=== PATIENT | male | born 1970 | race Caucasian/White ===

== ENCOUNTER 2024-07-08 10:18 | Emergency (ER) | payer BC, OTHER ==
[~2024-07-08] VITALS: Ht 177.8 cm; Wt 77.0 kg
[2024-07-08 10:20] VITALS: O2SAT 98
[2024-07-08 11:27] LABS: BASOPHILS % 0.8 % (0.0-2.0); EOSINOPHILS % 2.3 % (0.0-5.0); HEMATOCRIT. 45.2 % (42.0-52.0); HEMOGLOBIN. 15.5 g/dL (14.0-18.0); LYMPHOCYTES % 29.5 % (20.0-50.0); MEAN CORPUSCULAR HEMOGLOBIN 29.7 pg (28.0-32.0); MEAN CORPUSCULAR HGB CONC 34.3 g/dL (31.0-37.0); MEAN CORPUSCULAR VOLUME 86.4 fL (80.0-94.0); MEAN PLATELET VOLUME 8.5 fl (7.4-10.4); MONOCYTES % 8.3 % (2.0-8.0); NEUTROPHILS % 59.1 % (40.0-76.0); PLATELET 232 x1000/uL (130-400); RED BLOOD CELL COUNT 5.23 mill/uL (4.7-6.1); RED CELL DISTRIBUTION WIDTH 13.3 % (11.6-14.6); WHITE BLOOD COUNT 6.7 x1000/uL (4.5-11.0)
[2024-07-08 11:45] LABS: CALCIUM 9.3 mg/dL (8.7-10.4); CHLORIDE 105 mEq/L (98-107); POTASSIUM 3.6 mEq/L (3.5-5.1); SODIUM 140 mEq/L (136-145)
[2024-07-08 11:46] LABS: CARBON DIOXIDE 30 mEq/L (21-32)
[2024-07-08 11:51] LABS: CREATININE 0.9 mg/dL (0.6-1.3); GLUCOSE 99 mg/dL (70-105); TROPONIN I HIGH SENSITIVITY 4 ng/L (3.0-53); UREA NITROGEN BLOOD 9 mg/dL (9-23)
[2024-07-08] MEDS ORDERED: ONDANSETRON HCL 4MG/2ML INJ IV PRN (15:00)
[2024-07-08] MEDS ORDERED: ACETAMINOPHEN 325MG TABLET PO PRN (15:00)
[2024-07-08 15:06] LABS: TROPONIN I HIGH SENSITIVITY 5 ng/L (3.0-53)
[2024-07-08] MEDS ORDERED: IPRATROPIUM/ALBUTEROL 0.5-3(2.5)MG/3ML NEB HHN SCH (18:00)
[2024-07-08] MEDS: ENOXAPARIN 40MG/0.4ML SYR SUBCUT SCH (21:00)
[2024-07-08 21:30] VITALS: BP 132/79; PULSE 66; RESP 10; TEMP 36.66960; O2SAT 96
== END 2024-07-08 22:30 | disposition short-term general hospital (02) ==
LOC: ER 10:24 → EDBEDREQTM 13:55 → EDBEDREQ 13:55 → ER 22:30
DX: R07.89 Other chest pain (principal); R06.02 Shortness of breath; I27.20 Pulmonary hypertension, unspecified; Z88.2 Allergy status to sulfonamides
CPT/HCPCS: 36415; 71045; 80048; 84484; 85025; 93005; 99285; J1650